=== PATIENT | female | born 1970 | race African-American/Black ===

== ENCOUNTER 2017-06-03 22:09 | Emergency (ER) | payer OTHER ==
[~2017-06-03] VITALS: Ht 162.6 cm; Wt 72.6 kg
[2017-06-03 23:10] LABS: URINE BILIRUBIN NEGATIVE (Negative); URINE BLOOD NEGATIVE (Negative); URINE COLOR YELLOW; URINE GLUCOSE-RANDOM* NEGATIVE (Negative); URINE KETONES TRACE (Negative); URINE NITRITE NEGATIVE (Negative); URINE PROTEIN (DIPSTICK) NEGATIVE (Negative); URINE UROBILINOGEN 0.2 E.U./dl (0.2-1.0)
[2017-06-03 23:19] LABS: AMP/METHAMP Negative (Negative); BARBITURATES Negative (Negative); BENZODIAZEPINES Negative (Negative); COCAINE Negative (Negative); METHADONE Negative (Negative); OPIATES Negative (Negative); PCP Negative (Negative); THC POSITIVE (Negative)
[2017-06-03] MEDS ORDERED: TRAMADOL 50 MG50 MG PO (23:37)
[2017-06-03] MEDS ORDERED: ROBAXIN500 MG PO (23:37)
[2017-06-03] MEDS ORDERED: NAPROSYN500 MG PO (23:37)
[2017-06-04 00:43] VITALS: BP 136/79
== END 2017-06-04 00:46 | disposition home or self-care (01) ==
LOC: ER 22:09
PROVIDERS: Emergency Medicine
DX: S16.1XXA Strain of muscle, fascia and tendon at neck level, initial encounter (principal); S39.012A Strain of muscle, fascia and tendon of lower back, initial encounter; F17.210 Nicotine dependence, cigarettes, uncomplicated; V89.2XXA Person injured in unspecified motor-vehicle accident, traffic, initial encounter; Y93.I9 Activity, other involving external motion; Y92.89 Other specified places as the place of occurrence of the external cause; Y99.8 Other external cause status

== ENCOUNTER 2018-04-29 16:12 | Emergency (ER) | payer OTHER ==
[~2018-04-29] VITALS: Ht 162.6 cm; Wt 70.3 kg
[~2018-04-29 16:12] MED LIST: NAPROSYN500 MG PO; ROBAXIN500 MG PO; TRAMADOL 50 MG50 MG PO
[2018-04-29] MEDS ORDERED: PRINIVIL20 MG PO (17:15)
[2018-04-29] MEDS ORDERED: FLEXERIL PO (17:32)
[2018-04-29] MEDS ORDERED: MORPHINE SULFAT15 M3 PO (17:32)
[2018-04-29 17:51] VITALS: BP 139/85
== END 2018-04-29 17:52 | disposition home or self-care (01) ==
LOC: ER 16:12
DX: M54.5 Low back pain (principal); F17.210 Nicotine dependence, cigarettes, uncomplicated

== ENCOUNTER 2018-07-13 16:43 | Emergency (ER) | payer OTHER ==
[~2018-07-13] VITALS: Ht 162.6 cm; Wt 68.0 kg
--- NOTE | ~2018-07-13 | EKG ---
[place] [address] [address] [facility] [employer] [place] [address] ELECTROCARDIOGRAM REPORT Name: PINA FRANCIS Room #: PRE M.R.#: [id number] Admission: Attend Phys: Discharge: Date of : 68 Report #: [id number] THIS REPORT FOR: //name// [facility] ED Test Date: 2018-07-13 Test Time: 17:06:02 Pat Name: PINA FRANCIS Department: Room: Gender: F Hematology Technologist: NASRA : 1970 Requested By: Hilary Liz Order Number: [id number] MD: Reji Strauss Measurements Intervals [place] Rate: 82 P: 29 WA: 139 QRS: -6 QRSD: 97 T: 7 QT: 408 QTc: 477 Interpretive Statements Sinus rhythm Left ventricular hypertrophy Poor R wave progression No previous ECG available for comparison Electronically Signed On 07-13-2018 17:19:00 CDT by Reji Strauss [email or web address] <ELECTRONICALLY SIGNED> By: Reji Strauss MD, [facility] 07/13/18 1719 1706 1706 Reji Strauss MD, FACC /EPI
[~2018-07-13 16:43] MED LIST changes: +FLEXERIL PO; +MORPHINE SULFAT15 M3 PO; +PRINIVIL20 MG PO
[2018-07-13 17:58] LABS: ANION GAP 10 mmol/L (7-16); BUN 8 mg/dL (7-18); CALCIUM 9.4 mg/dL (8.5-10.1); CHLORIDE 102 mmol/L (98-107); CO2 26 mmol/L (21-32); CREATININE 0.8 mg/dL (0.6-1.0); GLUCOSE 88 mg/dL (74-106); POTASSIUM 3.7 mmol/L (3.5-5.1); SODIUM 138 mmol/L (136-145)
[2018-07-13 18:10] LABS: ALBUMIN 3.2 g/dL (3.4-5.0); SGOT 19 U/L (15-37); SGPT 21 U/L (30-65); TOTAL BILIRUBIN 0.2 mg/dL (<0.1-1.0); TROPONIN-I <0.06 ng/mL (<0.06)
[2018-07-13 18:17] LABS: ABSOLUTE NEUTROPHILS 2.2 thou/uL (1.4-8.2); BASOPHILS 1.5 % (0.0-2.0); EOSINOPHILS 4.8 % (0.0-3.0); HEMOGLOBIN 11.1 gm/dL (12.0-15.0); LYMPHOCYTES 43.7 % (24.0-44.0); MCH 30.2 pg (26.0-34.0); MCHC 33.7 g/dL (28.0-37.0); MCV 89.5 fL (80.0-100.0); MONOCYTES 7.8 % (1.0-8.0); PLATELET COUNT 451 thou/uL (150-400); POLYS 42.2 % (36.0-66.0); RBC 3.69 mil/uL (4.20-5.00); RDW 17.3 % (10.5-14.5); WBC 5.1 thou/uL (4.0-11.0)
[2018-07-13] MEDS ORDERED: FLEXERIL PO (18:30)
[2018-07-13 19:05] VITALS: BP 159/94
== END 2018-07-13 19:06 | disposition home or self-care (01) ==
LOC: ER 16:43
PROVIDERS: Emergency Medicine; Student in an Organized Health Care Education/Training Program
DX: M62.838 Other muscle spasm (principal); F17.210 Nicotine dependence, cigarettes, uncomplicated; I10 Essential (primary) hypertension